=== PATIENT | male | born 2000 | race Hispanic/Latino ===

== ENCOUNTER 2024-05-13 19:51 | Emergency (ER) | payer OTHER, SELFPAY ==
--- NOTE | ~2024-05-13 | XR_ITS ---
EXAMINATION: XR chest 2V DATE: 05/13/2024 20:28 INDICATION: Heart palpitations TECHNIQUE: PA and lateral views of the chest were obtained. COMPARISON: None FINDINGS: The lungs are clear with no focal airspace opacities, pulmonary edema, pleural effusion or pneumothor ax. The cardiomediastinal silhouette is normal. Visualized bones and soft tissues are unremarkable. IMPRESSION: 1. No acute cardiopulmonary disease. Reviewed, dictated and finalized at location A.
--- NOTE | 2024-05-13 19:53 | ECG_ITS ---
Test Date: 2024-05-13 19:59:42 Measurements Intervals [place] Rate: 94 P: 66 WI: 132 QRS: 73 QRSD: 90 T: 49 QT: 312 QTc: 391 Interpretive Statements SINUS RHYTHM WITH SINUS ARRHYTHMIA No previous ECG available for comparison Electronically Signed On 05-14-2024 09:40:36 CDT by Loreta Manrique M.D.
[2024-05-13 20:07] VITALS: BP 137/91; PULSE 92; RESP 19; TEMP 36.8; O2SAT 100
[2024-05-13 20:17] LABS: Basophils Percent Auto 0.3 % (0.2-1.2); Eosinophils Absolute Auto 0.2 K/mm3 (0-0.3); Eosinophils Percent Auto 1.6 % (0-4.4); Hematocrit 46.1 % (42.0-52.0); Hemoglobin 15.6 g/dL (14.0-18.0); Immature Granulocyte Absolute 0.05 K/mm3 (0.00-0.031); Immature Granulocyte Percent A 0.5 % (0-0.5); Lymphocytes Absolute Auto 3.24 K/mm3 (0.9-3.2); Lymphocytes Percent Auto 29.7 % (18.3-44.2); Mean Corpuscular HGB Conc 33.8 g/dl (32-36); Mean Corpuscular Hemoglobin 30.1 pg (26-34); Mean Platelet Volume 10.4 fl (7.4-10.4); Monocytes Absolute Auto 0.9 K/mm3 (0.1-0.6); Monocytes Percent Auto 8.6 % (2.6-8.5); Neutrophils Absolute Auto 6.5 K/mm3 (1.3-6.7); Neutrophils Percent Auto 59.3 % (45.5-73.1); Platelet Count Result 201 k/mm3 (150-375); Red Blood Count 5.18 M/mm3 (4.6-6.20); Red Cell Distribution Width 11.9 % (11.5-14.5); White Blood Count 10.9 K/mm3 (4.5-10.0)
[2024-05-13 20:32] LABS: Prothrombin Time 13.2 Seconds (11.1-14.7)
[2024-05-13 20:33] LABS: Partial Thromboplastin Time 28.8 Seconds (22.3-36.8)
[2024-05-13 20:44] LABS: Alanine Aminotransferase 40 U/L (6-50); Albumin Level 4.9 g/dL (3.5-5.1); Alkaline Phosphatase 65 U/L (38-126); Anion Gap 11 mmol/L (4-12); Aspartate Amino Transferase 28 U/L (17-59); Bilirubin,Total 0.4 mg/dL (0.2-1.3); Blood Urea Nitrogen 16 mg/dL (9-20); Calcium 9.2 mg/dL (8.4-10.2); Carbon Dioxide 27 mmol/L (22-30); Chloride 100 mmol/L (98-107); Estimated CRCL calculation 93 ml/min; Estimated Glomerular Filt Rate > 60; Glucose 106 mg/dL (65-110); Lipase 143 U/L (23-300); Sodium 138 mmol/L (137-145)
[2024-05-13 20:54] LABS: Troponin I < 0.012 ng/mL (0.000-0.034)
[2024-05-13 22:01] VITALS: BP 138/95; PULSE 94; PULSE 98; RESP 16; TEMP 36.8; O2SAT 100; O2SAT 99
[2024-05-13 22:02] VITALS: O2SAT 100
--- NOTE | 2024-05-13 22:35 | ECG_ITS ---
Test Date: 2024-05-13 22:43:09 Measurements Intervals [place] Rate: 89 P: 60 NE: 148 QRS: 67 QRSD: 94 T: 45 QT: 332 QTc: 405 Interpretive Statements SINUS RHYTHM Compared to ECG 05/13/2024 19:59:42 NO SIGNIFICANT CHANGES Electronically Signed On 05-14-2024 09:42:36 CDT by Loreta Manrique M.D.
[2024-05-13] MEDS: SODIUM CHLORIDE 0.9% IV 1,000 ML 999 ML IV CONT (22:44)
--- NOTE | 2024-05-13 22:45 | ED.ARRPALP ---
HPI - Arrhythmia/Palpitations General Chief Complaint: Arrhythmia/Palpitations Stated Complaint: heart palpitations Time Seen by Provider: 05/13/24 21:57 History of Present Illness HPI narrative: Patient is a 24-year-old male who presents to the emergency department this evening complaining of palpitations for the past 5 days. Patient initially went to an urgent care but decided that he needed a further workup so decided to come to the emergency department for further evaluation. Denies any history of cardiovascular disease or any previous history of palpitations. Patient admits that throughout the past few days there has been a few days where he did not drink any water throughout the whole day. Denies any past medical history or surgical history. Denies any drug use. Denies any chest pain or shortness of breath. No additional symptoms or concerns at this time. Related Data Allergies Allergy/AdvReac Type Severity Reaction Status Date / Time No Known Allergies Allergy Verified 05/13/24 20:11 Review of Systems Review of Systems: All systems are reviewed and are negative unless stated otherwise in the HPI. Exam Narrative: General: Alert, awake, afebrile, in no acute distress. HEENT: PERRL, no rhinorrhea, no post nasal drip, oropharynx clear. Cardiovascular: Regular rate and rhythm, no murmurs, rubs or gallops, no peripheral edema. Respiratory: Clear to auscultation bilaterally, no tachypnea, no wheezing, no rhonchi, no rubs, no respiratory distress. Abdomen: Soft, nontender, nondistended, no rebound, no guarding, no peritoneal signs. Musculoskeletal: No joint swelling or deformity, normal muscle tone. Skin: No rashes or petechia, no signs of infection. Neurological: Alert and oriented to person, place, and time. Follows all commands. No focal deficits, speech is clear and fluent. Course Vital Signs Vital signs: Vital Signs Temperature 98.2 F 05/13/24 20:07 Pulse Rate 92 05/13/24 20:07 Respiratory Rate 19 05/13/24 20:07 Blood Pressure 137/91 H 05/13/24 20:07 Pulse Oximetry 100 05/13/24 20:07 Oxygen Delivery Room Air 05/13/24 20:07 Temperature 98.3 F 05/13/24 22:01 Pulse Rate 98 05/13/24 22:01 Respiratory Rate 16 05/13/24 22:01 Blood Pressure 138/95 H 05/13/24 22:01 Pulse Oximetry 100 05/13/24 22:02 Oxygen Delivery Room Air 05/13/24 22:02 MDM - Arrhythmia/Palpitations MDM Narrative Medical decision making narrative: The patient was evaluated by myself in the emergency department. History is obtained from patient who is an independent historian and physical exam was performed. External medical records were reviewed at this time. IV was established and pertinent tests were ordered. Patient was administered 1 L IV fluid bolus with normal saline. EKG was obtained which revealed sinus rhythm rate of 94 beats per minute, no evidence of acute ischemia. EKG was independently interpreted by me and is currently pending official cardiology read. Laboratory results obtained revealing no acute process. Two sets of troponins were obtained and both noted to be negative. Imaging studies obtained included CXR which was independently interpreted by me revealing no acute cardiopulmonary process, which is pending final radiology interpretation. Differential diagnosis considerations include dehydration, electrolyte derangements, arrhythmia, acute viral syndrome. Comorbidities impacting this visit include none. I have evaluated and discussed social determinants of health with the patient that could potentially impact subsequent diagnosis and treatment plans. On repeat assessment of the patient, reevaluation revealed that the patient is doing well and is in no acute distress. Patient symptoms have improved since he arrived to our emergency department. Repeat vital signs were all reviewed and noted to be stable. Differential diagnosis and treatment plan were discussed with the rebeka
[2024-05-13 23:14] LABS: Troponin I < 0.012 ng/mL (0.000-0.034)
== END 2024-05-13 23:31 | disposition home or self-care (01) ==
PROVIDERS: Emergency Medicine; Emergency Provider Emergency Medicine; PCP Nurse Practitioner Adult Health
DX: R00.2 Palpitations (principal)
CPT/HCPCS: 36415; 71046; 80053; 83690; 84484; 85025; 85610; 85730; 93005; 96360; 99284; J7030